=== PATIENT | male | born 1960 | race Hispanic/Latino ===

== ENCOUNTER 2020-11-28 19:00 | Emergency (ER) | payer SELFPAY ==
[2020-11-28] MEDS ORDERED: oxyCODONE /ACETAMINOPHEN 5-325MG TAB PO ONE (22:49)
--- NOTE | 2020-11-28 22:56 | Emergency Department Report ---
ED Lower Extremity HPI - General Chief Complaint: Puncture Wound Stated Complaint: STEPPED ON A STEEL RAKE Time Seen by Provider: 11/28/20 22:37 Source: patient Mode of arrival: Ambulatory Limitations: No Limitations - History of Present Illness MD Complaint: foot injury -: Sudden, days(s) (4) Injury: Foot: Left Type of Injury: puncture wound (Stepped on a heavy-duty rake outside accidentally resulting in puncture wound pain and swelling to the left foot) Severity: moderate, severe Context: direct blow Associated Symptoms: swelling - Related Data Previous Rx's Medication Instructions Recorded Last Taken Type Ketorolac [Toradol] 10 mg PO Q6H PRN #14 tablet 11/29/20 Unknown Rx clindamycin HCL [Clindamycin HCl] 300 mg PO TID #30 capsule 11/29/20 Unknown Rx Allergies Allergy/AdvReac Type Severity Reaction Status Date / Time Penicillins Allergy Swelling Verified 11/28/20 20:19 ED Review of Systems ROS: Stated complaint: STEPPED ON A STEEL RAKE Other details as noted in HPI Comment: All other systems reviewed and negative ED Past Medical Hx - Past Medical History Previous Medical History?: No - Surgical History Past Surgical History?: No - Social History Smoking Status: Current Every Day Smoker - Medications Home Medications: Home Medications Medication Instructions Recorded Confirmed Last Taken Type Ketorolac [Toradol] 10 mg PO Q6H PRN #14 tablet 11/29/20 Unknown Rx clindamycin HCL [Clindamycin HCl] 300 mg PO TID #30 capsule 11/29/20 Unknown Rx ED Physical Exam - General Limitations: No Limitations General appearance: alert, in no apparent distress - Head Head exam: Present: atraumatic, normocephalic - Eye Eye exam: Present: normal appearance, PERRL, EOMI Pupils: Present: normal accommodation - ENT ENT exam: Present: normal exam, normal orophraynx, mucous membranes moist, TM's normal bilaterally - Neck Neck exam: Present: normal inspection, full ROM - Respiratory Respiratory exam: Present: normal lung sounds bilaterally. Absent: respiratory distress, wheezes, accessory muscle use, decreased breath sounds - Cardiovascular Cardiovascular Exam: Present: regular rate, normal rhythm. Absent: systolic murmur, diastolic murmur, rubs, gallop - GI/Abdominal GI/Abdominal exam: Present: soft, normal bowel sounds. Absent: tenderness, guarding, hypoactive bowel sounds, organomegaly, mass - Rectal Rectal exam: Present: deferred - Extremities Exam Extremities exam: Present: tenderness, normal capillary refill - Expanded Lower Extremity Exam Right Lower Leg exam: Present: normal inspection, full ROM Ankle exam: Present: normal inspection, full ROM Foot/Toe exam: Present: tenderness, swelling, erythema, puncture wound (X3 noted with local cellulitis and swelling noted subcutaneous emphysema no crepitus noted no lymphangitis) Neuro vascular tendon exam: Present: no vascular compromise - Back Exam Back exam: Present: normal inspection. Absent: CVA tenderness (R), CVA tenderness (L) - Neurological Exam Neurological exam: Present: alert, oriented X3, CN II-XII intact - Psychiatric Psychiatric exam: Present: normal affect, normal mood - Skin Skin exam: Present: warm, dry, erythema. Absent: intact (puncture wound), rash ED Course Vital Signs 11/28/20 11/29/20 11/29/20 20:18 00:09 01:09 Temperature 98.0 F Pulse Rate 80 Respiratory 16 20 20 Rate Blood Pressure 144/73 Blood Pressure [Right] O2 Sat by Pulse 99 Oximetry 11/29/20 11/29/20 03:14 03:16 Temperature 98.4 F Pulse Rate 85 Respiratory 20 20 Rate Blood Pressure Blood Pressure 135/82 [Right] O2 Sat by Pulse 99 99 Oximetry Critical care attestation.: If time is entered above; I have spent that time in minutes in the direct care of this critically ill patient, excluding procedure time. ED Disposition Clinical Impression: Cellulitis of foot, Puncture wound of foot, left Disposition: 01 HOME / SELF CARE / HOMELESS Is pt being admited?: No Does the pt Need Aspirin: No Condition: Stable Instructions: Cellulitis, Adult, Puncture Wound Prescriptions: clindamycin HCL [Clindamycin HCl] 300 mg PO TID #30 capsule Ketorolac [Toradol] 10 mg PO Q6H PRN #14 tablet PRN Reason: Pain Referrals: PRIMARY CARE,MD [Primary Care Provider] - 3-5 Days
[2020-11-28] MEDS ORDERED: TETANUS,DIPH,PERTUSS(ACELL) VACCINE 0.5 ML SYRINGE IM ONE (22:57)
[2020-11-28] MEDS ORDERED: CLINDAMYCIN 150 MG/ML 2 ML VIAL IM ONE (23:14)
--- NOTE | 2020-11-28 23:18 | XRay Report ---
Left foot-3 views INDICATION: punctur trauma to foot and swelling and pain. COMPARISON: None. IMPRESSION: No acute osseous abnormality. Mild soft tissue swelling greatest in the forefoot diffus jessica both along the plantar and dorsal aspects. No radiopaque foreign body or subcutaneous gas identif ied. Normal alignment. No significant DJD. Signer Name: Cresencio Choi MD Signed: 11/28/2020 11:14 PM Workstation Name: [id number]
[2020-11-29 03:15] VITALS: BP 135/82
== END 2020-11-29 03:18 | disposition home or self-care (01) ==
LOC: ED 19:00
DX: S91.332A Puncture wound without foreign body, left foot, initial encounter (principal); L03.119 Cellulitis of unspecified part of limb; F17.200 Nicotine dependence, unspecified, uncomplicated; Z88.0 Allergy status to penicillin; Z79.899 Other long term (current) drug therapy; W22.8XXA Striking against or struck by other objects, initial encounter; Y93.89 Activity, other specified; Y92.89 Other specified places as the place of occurrence of the external cause; Y99.8 Other external cause status
CPT/HCPCS: 90471; 90715; 96372